=== PATIENT | female | born 1955 | race Native Hawaiian/Other Pacific Islander ===

== ENCOUNTER 2020-06-21 08:30 | Outpatient (CLI) | payer BC | END 2020-06-21 22:44 | disposition home or self-care (01) | LOC: US 08:30 | DX: R10.11 Right upper quadrant pain (principal); R19.8 Other specified symptoms and signs involving the digestive system and abdomen; E03.9 Hypothyroidism, unspecified; E04.9 Nontoxic goiter, unspecified ==

== ENCOUNTER 2021-09-04 08:15 | Outpatient (CLI) | payer OTHER | END 2021-09-04 18:49 | disposition home or self-care (01) | LOC: NM 08:15 | PROVIDERS: ATTEND Student in an Organized Health Care Education/Training Program | DX: I12.9 Hypertensive chronic kidney disease with stage 1 through stage 4 chronic kidney disease, or unspecified chronic kidney disease (principal); N18.31 Chronic kidney disease, stage 3a; R10.11 Right upper quadrant pain; R19.8 Other specified symptoms and signs involving the digestive system and abdomen; I48.91 Unspecified atrial fibrillation; F32.9 Major depressive disorder, single episode, unspecified; F41.1 Generalized anxiety disorder; K21.9 Gastro-esophageal reflux disease without esophagitis; E78.49 Other hyperlipidemia; E03.8 Other specified hypothyroidism; R73.03 Prediabetes; E55.9 Vitamin D deficiency, unspecified | CPT/HCPCS: A9537 ==

== ENCOUNTER 2023-06-26 10:29 | Outpatient (CLI) | payer OTHER | END 2023-06-26 19:56 | disposition home or self-care (01) | LOC: NM 10:29 | PROVIDERS: ATTEND Internal Medicine Gastroenterology | DX: R10.11 Right upper quadrant pain (principal) | CPT/HCPCS: A9537 ==